=== PATIENT | male | born 1960 | race African-American/Black ===

== ENCOUNTER 2025-09-23 16:50 | Inpatient (IN) | payer MEDICARE ==
[2025-09-23] MEDS: NIFEdipine XL 30 MG ER.TAB PO SCH (22:12)
[2025-09-23] MEDS: QUEtiapine 25 MG TAB PO SCH (22:12)
[2025-09-24] MEDS: FLU (Fluad Triv) 25-26 (65UP)PF 45 MCG/0.5 ML Syringe IM ONE (06:53)
[2025-09-24] MEDS: PNEUMOC 20-VAL CONJ-DIP CRM/PF 0.5 ML SYRINGE IM ONE (06:54)
[2025-09-24 08:31] LABS: Anion Gap 19 mmol/L (10-20); BUN (Urea Nitrogen) 41 mg/dL (8.4-25.7); Calc. Creatinine Clearance 45 mL/min (70-130); Calcium 9.6 mg/dL (7.8-10.44); Carbon Dioxide 20 mmol/L (23-31); Chloride 97 mmol/L (98-107); Glucose 111 mg/dL (80-115); Potassium 4.4 mmol/L (3.5-5.1); Sodium 132 mmol/L (136-145)
[2025-09-24] MEDS: Acetaminophen ER (8hr) 650 MG TAB PO PRN (08:40)
[2025-09-24] MEDS: Carvedilol 6.25 MG TAB PO SCH (08:41)
[2025-09-24] MEDS: Losartan 50 MG TAB PO SCH (08:41)
[2025-09-24 09:14] LABS: Hematocrit 41.5 % (42.0-52.0); Hemoglobin 12.9 g/dL (14.0-18.0); Mean Corpuscular Hemoglobin 29.7 pg (27.0-31.0); Mean Corpuscular Volume 95.5 fl (78.0-98.0); Platelet Count 329 10x3/uL (130-400); Red Blood Cell (RBC) Count 4.35 mill/uL (4.70-6.10); White Blood Cell (WBC) Count 7.3 10x3/uL (4.8-10.8)
[2025-09-27 05:53] LABS: Anion Gap 15 mmol/L (10-20); BUN (Urea Nitrogen) 54 mg/dL (8.4-25.7); Calc. Creatinine Clearance 60 mL/min (70-130); Calcium 8.4 mg/dL (7.8-10.44); Carbon Dioxide 19 mmol/L (23-31); Chloride 95 mmol/L (98-107); Glucose 83 mg/dL (80-115); Potassium 3.2 mmol/L (3.5-5.1); Sodium 126 mmol/L (136-145)
[2025-09-27] MEDS: Sodium Bicarbonate Tab 325 MG TAB PO SCH (08:27)
[2025-09-27] MEDS ORDERED: Acetaminophen 325 MG TAB PO PRN ×2 (12:11)
[2025-09-28 05:39] LABS: ALT (SGPT) 68 U/L (Less than 45); AST (SGOT) 42 U/L (11-34); Albumin 2.9 g/dL (3.1-4.5); Alkaline Phosphatase 81 U/L (40-110); Anion Gap 15 mmol/L (10-20); BUN (Urea Nitrogen) 59 mg/dL (8.4-25.7); Bilirubin, Total 0.3 mg/dL (0.3-1.2); Calc. Creatinine Clearance 50 mL/min (70-130); Calcium 8.5 mg/dL (7.8-10.44); Carbon Dioxide 20 mmol/L (23-31); Chloride 96 mmol/L (98-107); Globulin 3.7 g/dL (2.4-3.5); Glucose 87 mg/dL (80-115); Potassium 3.3 mmol/L (3.5-5.1); Sodium 128 mmol/L (136-145)
[2025-09-29] MEDS ORDERED: AA 4.25 %/CALCIUM/LYTES/D5W 2,000 ML IV SCH (12:45)
[2025-09-29] MEDS: AA 4.25 %/CALCIUM/LYTES/D5W 2,000 ML IV SCH (14:41)
[2025-09-29] MEDS: Carvedilol 6.25 MG TAB PER TUBE SCH (16:41)
[2025-09-29] MEDS: Potassium Bicarbonate/Cit Ac 20 MEQ TAB PER TUBE SCH (16:42)
[2025-09-29] MEDS: Acetaminophen 325 MG TAB PER TUBE PRN (16:50)
[2025-09-29] MEDS: QUEtiapine 25 MG TAB PER TUBE SCH (23:05)
[2025-09-30 05:34] LABS: #Basophils 0.1 thou/uL (0.0-0.2); #Eosinophils 0.1 thou/uL (0.0-0.7); #Lymphocytes 2.6 thou/uL (1.20-3.40); #Monocytes 0.9 thou/uL (0.11-0.59); #Neutrophils 3.3 thou/uL (1.40-6.50); %Basophils 1.7 % (0.0-1.0); %Eosinophils 1.0 % (0.0-10.0); %Lymphocytes 37.3 % (21.0-51.0); %Monocytes 13.0 % (0.0-10.0); %Neutrophils 47.0 % (42.0-75.0); Hematocrit 37.7 % (42.0-52.0); Hemoglobin 12.4 g/dL (14.0-18.0); Mean Corpuscular Hemoglobin 30.6 pg (27.0-31.0); Mean Corpuscular Volume 93.3 fl (78.0-98.0); Platelet Count 230 10x3/uL (130-400); Red Blood Cell (RBC) Count 4.04 mill/uL (4.70-6.10); White Blood Cell (WBC) Count 7.1 10x3/uL (4.8-10.8)
[2025-09-30 05:51] LABS: ALT (SGPT) 65 U/L (Less than 45); AST (SGOT) 36 U/L (11-34); Albumin 3.4 g/dL (3.1-4.5); Alkaline Phosphatase 87 U/L (40-110); Anion Gap 16 mmol/L (10-20); BUN (Urea Nitrogen) 32 mg/dL (8.4-25.7); Bilirubin, Total 0.3 mg/dL (0.3-1.2); Calc. Creatinine Clearance 123 mL/min (70-130); Calcium 9.6 mg/dL (7.8-10.44); Carbon Dioxide 23 mmol/L (23-31); Chloride 103 mmol/L (98-107); Globulin 4.2 g/dL (2.4-3.5); Glucose 123 mg/dL (80-115); Potassium 4.2 mmol/L (3.5-5.1); Sodium 138 mmol/L (136-145)
[2025-09-30] MEDS: Losartan 50 MG TAB PER TUBE SCH (08:33)
[2025-10-02] MEDS: ALPRAZolam 0.5 MG TAB PO PRN (17:00)
[2025-10-02 20:31] LABS: ALT (SGPT) 61 U/L (Less than 45); AST (SGOT) 40 U/L (11-34); Albumin 3.5 g/dL (3.1-4.5); Alkaline Phosphatase 84 U/L (40-110); Anion Gap 21 mmol/L (10-20); BUN (Urea Nitrogen) 49 mg/dL (8.4-25.7); Bilirubin, Total 0.3 mg/dL (0.3-1.2); Calc. Creatinine Clearance 66 mL/min (70-130); Calcium 10.1 mg/dL (7.8-10.44); Carbon Dioxide 26 mmol/L (23-31); Chloride 103 mmol/L (98-107); Globulin 4.3 g/dL (2.4-3.5); Glucose 108 mg/dL (80-115); Potassium 4.0 mmol/L (3.5-5.1); Sodium 146 mmol/L (136-145)
[2025-10-04 06:33] LABS: Anion Gap 18 mmol/L (10-20); BUN (Urea Nitrogen) 55 mg/dL (8.4-25.7); Calc. Creatinine Clearance 63 mL/min (70-130); Calcium 9.3 mg/dL (7.8-10.44); Carbon Dioxide 30 mmol/L (23-31); Chloride 99 mmol/L (98-107); Glucose 92 mg/dL (80-115); Potassium 3.2 mmol/L (3.5-5.1); Sodium 144 mmol/L (136-145)
[2025-10-04] MEDS: Carvedilol 6.25 MG TAB PO SCH (17:11)
[2025-10-04] MEDS: Potassium Bicarbonate/Cit Ac 20 MEQ TAB PO SCH (19:30)
[2025-10-04] MEDS: QUEtiapine 25 MG TAB PO SCH (20:35)
[2025-10-05 05:55] LABS: Anion Gap 20 mmol/L (10-20); BUN (Urea Nitrogen) 61 mg/dL (8.4-25.7); Calc. Creatinine Clearance 38 mL/min (70-130); Calcium 8.8 mg/dL (7.8-10.44); Carbon Dioxide 28 mmol/L (23-31); Chloride 93 mmol/L (98-107); Glucose 89 mg/dL (80-115); Potassium 3.7 mmol/L (3.5-5.1); Sodium 137 mmol/L (136-145)
[2025-10-05] MEDS: Potassium Bicarbonate/Cit Ac 20 MEQ TAB PO SCH (08:37)
[2025-10-05] MEDS: Losartan 50 MG TAB PO SCH (08:39)
[2025-10-06 05:26] LABS: Anion Gap 17 mmol/L (10-20); BUN (Urea Nitrogen) 56 mg/dL (8.4-25.7); Calc. Creatinine Clearance 56 mL/min (70-130); Calcium 8.8 mg/dL (7.8-10.44); Carbon Dioxide 28 mmol/L (23-31); Chloride 93 mmol/L (98-107); Glucose 103 mg/dL (80-115); Potassium 3.4 mmol/L (3.5-5.1); Sodium 135 mmol/L (136-145)
[2025-10-06 06:16] VITALS: BMI 37.5
[2025-10-06] MEDS: Potassium Bicarbonate/Cit Ac 20 MEQ TAB PO SCH (17:17)
[2025-10-07 05:39] LABS: Anion Gap 18 mmol/L (10-20); BUN (Urea Nitrogen) 47 mg/dL (8.4-25.7); Calc. Creatinine Clearance 78 mL/min (70-130); Calcium 8.7 mg/dL (7.8-10.44); Carbon Dioxide 27 mmol/L (23-31); Chloride 94 mmol/L (98-107); Glucose 95 mg/dL (80-115); Potassium 3.6 mmol/L (3.5-5.1); Sodium 135 mmol/L (136-145)
[2025-10-08] MEDS: Acetaminophen 325 MG TAB PO PRN (21:06)
[2025-10-12 08:05] LABS: ALT (SGPT) 50 U/L (Less than 45); AST (SGOT) 34 U/L (11-34); Albumin 3.2 g/dL (3.1-4.5); Alkaline Phosphatase 84 U/L (40-110); Anion Gap 16 mmol/L (10-20); BUN (Urea Nitrogen) 19 mg/dL (8.4-25.7); Bilirubin, Total 0.4 mg/dL (0.3-1.2); Calc. Creatinine Clearance 95 mL/min (70-130); Calcium 9.3 mg/dL (7.8-10.44); Carbon Dioxide 24 mmol/L (23-31); Chloride 99 mmol/L (98-107); Globulin 3.7 g/dL (2.4-3.5); Glucose 82 mg/dL (80-115); Potassium 4.3 mmol/L (3.5-5.1); Sodium 135 mmol/L (136-145)
[2025-10-12 08:22] LABS: Hematocrit 35.3 % (42.0-52.0); Hemoglobin 11.2 g/dL (14.0-18.0); Mean Corpuscular Hemoglobin 29.9 pg (27.0-31.0); Mean Corpuscular Volume 93.8 fl (78.0-98.0); Platelet Count 140 10x3/uL (130-400); Red Blood Cell (RBC) Count 3.70 mill/uL (4.70-6.10); White Blood Cell (WBC) Count 7.1 10x3/uL (4.8-10.8)
[2025-10-12] MEDS ORDERED: Bisacodyl 10 MG SUPP PR PRN (13:35)
[2025-10-15 05:58] LABS: Anion Gap 15 mmol/L (10-20); BUN (Urea Nitrogen) 11 mg/dL (8.4-25.7); Calc. Creatinine Clearance 126 mL/min (70-130); Calcium 8.6 mg/dL (7.8-10.44); Carbon Dioxide 22 mmol/L (23-31); Chloride 102 mmol/L (98-107); Glucose 85 mg/dL (80-115); Potassium 3.8 mmol/L (3.5-5.1); Sodium 135 mmol/L (136-145)
[2025-10-15] MEDS: Carvedilol 6.25 MG TAB PO SCH (14:17)
[2025-10-16] MEDS: Carvedilol 6.25 MG TAB PO SCH (08:19)
[2025-10-18 05:37] LABS: Anion Gap 17 mmol/L (10-20); BUN (Urea Nitrogen) 11 mg/dL (8.4-25.7); Calc. Creatinine Clearance 144 mL/min (70-130); Calcium 8.9 mg/dL (7.8-10.44); Carbon Dioxide 18 mmol/L (23-31); Chloride 103 mmol/L (98-107); Glucose 77 mg/dL (80-115); Potassium 4.6 mmol/L (3.5-5.1); Sodium 133 mmol/L (136-145)
[2025-10-18] MEDS: Potassium Bicarbonate/Cit Ac 20 MEQ TAB PO SCH (17:18)
[2025-10-20] MEDS: hydrALAZINE 10 MG TAB PO PRN (15:31)
[2025-10-21 05:25] LABS: Hematocrit 34.8 % (42.0-52.0); Hemoglobin 11.0 g/dL (14.0-18.0); Mean Corpuscular Hemoglobin 29.9 pg (27.0-31.0); Mean Corpuscular Volume 94.4 fl (78.0-98.0); Platelet Count 243 10x3/uL (130-400); Red Blood Cell (RBC) Count 3.68 mill/uL (4.70-6.10); White Blood Cell (WBC) Count 7.8 10x3/uL (4.8-10.8)
[2025-10-21 05:39] LABS: ALT (SGPT) 64 U/L (Less than 45); AST (SGOT) 39 U/L (11-34); Albumin 3.5 g/dL (3.1-4.5); Alkaline Phosphatase 76 U/L (40-110); Anion Gap 15 mmol/L (10-20); BUN (Urea Nitrogen) 9 mg/dL (8.4-25.7); Bilirubin, Total 0.3 mg/dL (0.3-1.2); Calc. Creatinine Clearance 121 mL/min (70-130); Calcium 9.1 mg/dL (7.8-10.44); Carbon Dioxide 22 mmol/L (23-31); Chloride 103 mmol/L (98-107); Globulin 3.5 g/dL (2.4-3.5); Glucose 85 mg/dL (80-115); Potassium 4.1 mmol/L (3.5-5.1); Sodium 136 mmol/L (136-145)
[2025-10-26] MEDS: Losartan 50 MG TAB PO SCH (08:12)
[2025-10-28 05:31] LABS: Anion Gap 13 mmol/L (10-20); BUN (Urea Nitrogen) 14 mg/dL (8.4-25.7); Calc. Creatinine Clearance 150 mL/min (70-130); Calcium 8.5 mg/dL (7.8-10.44); Carbon Dioxide 22 mmol/L (23-31); Chloride 104 mmol/L (98-107); Glucose 81 mg/dL (80-115); Potassium 4.1 mmol/L (3.5-5.1); Sodium 135 mmol/L (136-145)
[2025-11-01 19:02] VITALS: BMI 38.7
[2025-11-02] MEDS: Carvedilol 6.25 MG TAB PO SCH (08:33)
[2025-11-02 18:47] VITALS: TEMP 98.4
[2025-11-03 09:00] VITALS: BP 153/80
== END 2025-11-03 11:45 | disposition home health service (06) | DRG 945 ==
LOC: MADMS 17:16
PROVIDERS: ADMIT Family Medicine; ATTEND Family Medicine
PROC: F07Z9ZZ Gait Training/Functional Ambulation Treatment (ICD-10-PCS; principal; 2025-09-23)
DX: Z74.09 Other reduced mobility (principal); E87.1 Hypo-osmolality and hyponatremia; N39.0 Urinary tract infection, site not specified; K56.609 Unspecified intestinal obstruction, unspecified as to partial versus complete obstruction; N17.9 Acute kidney failure, unspecified; E87.6 Hypokalemia; I95.9 Hypotension, unspecified; I10 Essential (primary) hypertension; F17.200 Nicotine dependence, unspecified, uncomplicated; E66.9 Obesity, unspecified; Z91.148 Patient's other noncompliance with medication regimen for other reason; Z68.38 Body mass index [BMI] 38.0-38.9, adult
CPT/HCPCS: 36415; 74018; 74176; 80048; 80053; 83630; 85025; 85027; 87324; 87449; J7030; J7042